=== PATIENT | female | born 1980 | race Caucasian/White ===

== ENCOUNTER 2019-04-21 07:42 | Day surgery (SDC) | payer BC ==
[2019-04-18 15:17] VITALS: BMI 21.9
[2019-04-21 09:44] VITALS: TEMP 98
[2019-04-21 11:01] VITALS: BP 126/80; PULSE 72
--- NOTE | 2019-04-22 16:06 | PATH ---
Surgical Pathology Report Patient Name: ELI العراقي [facility]. Rec. #: [id number] /Age/Gender: 1980 (Age: 39) / F Account: [id number] Location: U-ENDOSCOPY Taken: 04/21/2019 Received: 04/21/2019 Reported: 04/22/2019 Physicians: Alejandro Lanier D.O. Specimen(s) Received 2ND PORTION DUODENUM AND BULB Clinical History History of celiac disease Postoperative diagnosis: Celiac, anemia Final Diagnosis SECOND PORTION OF DUODENUM AND BULB, BIOPSY: DUODENAL MUCOSA WITH UNREMARKABLE CRYPT AND VILLOUS ARCHITECTURE (VILLOUS TO CRYPT RATIO: 3:1), PATCHY MILDLY INCREASED INTRAEPITHELIAL LYMPHOCYTES COUNTS (~30 IEL PER 100 ENTEROCYTES). VILLOUS ATROPHY IS NOT IDENTIFIED IN THIS MATERIAL. NO HISTOLOGIC EVIDENCE OF BASEMENT MEMBRANE THICKENING OR SUBEPITHELIAL COLLAGEN DEPOSITION. Comment: Although findings are non-specific, in view of known clinical history of celiac disease, this may represent Ayon Type 1 (Modified Ayon Classification for Celiac Disease). Duodenal lymphocytosis with normal villous architecture also can be seen in a variety of conditions (infectious etiology, drug related conditions, Inflammatory bowel disease, and other autoimmune conditions). Suggest correlation with clinical information and serology results. Electronically Signed Yina Eckert M.D. Gross Description Received in formalin, labeled "biopsy second portion of duodenum and bulb" are 4 marshall, irregular portions of soft tissue ranging from 0.2-0.5 cm. in greatest dimension. The specimens are submitted in toto in one cassette. 04/21/2019 saudi04/21/2019
== END 2019-04-21 10:37 | disposition home or self-care (01) ==
LOC: JASU-ENDO 07:42
PROVIDERS: ATTEND Internal Medicine Gastroenterology
PROC: 0DB98ZX Excision of Duodenum, Via Natural or Artificial Opening Endoscopic, Diagnostic (ICD-10-PCS; principal; 2019-04-21 09:00)
DX: D50.9 Iron deficiency anemia, unspecified (principal); K31.9 Disease of stomach and duodenum, unspecified; Z87.19 Personal history of other diseases of the digestive system
CPT/HCPCS: 81025; 88305-TC

== ENCOUNTER → 2021-10-15 | Day surgery (SDC) | payer BC ==
[2021-10-14 14:11] VITALS: BMI 22.6
[2021-10-15 13:06] VITALS: TEMP 97.8
[2021-10-15 13:47] VITALS: BP 97/62
[2021-10-15 13:57] VITALS: PULSE 60
== END | disposition home or self-care (01) ==
LOC: JASU-ENDO 04:48
PROVIDERS: ATTEND Internal Medicine Gastroenterology
PROC: 0DB98ZX Excision of Duodenum, Via Natural or Artificial Opening Endoscopic, Diagnostic (ICD-10-PCS; 2021-10-15)
PROC: 0DBL8ZX Excision of Transverse Colon, Via Natural or Artificial Opening Endoscopic, Diagnostic (ICD-10-PCS; principal; 2021-10-15 11:30)
DX: Z12.11 Encounter for screening for malignant neoplasm of colon (principal); D50.9 Iron deficiency anemia, unspecified; Z80.0 Family history of malignant neoplasm of digestive organs; D12.3 Benign neoplasm of transverse colon; K64.8 Other hemorrhoids; Z87.19 Personal history of other diseases of the digestive system
CPT/HCPCS: 88305-TC

== ENCOUNTER 2021-11-23 09:34 | Emergency (ER) | payer BC ==
[2021-11-23 09:38] VITALS: BP 112/70; PULSE 72; RESP 18; TEMP 98.3; BMI 22.8
[2021-11-23 09:58] LABS: HCG,QUALITATIVE URINE Negative
[2021-11-23 10:05] LABS: EPITHELIAL CELLS RARE /hpf
[2021-11-23] MEDS ORDERED: ACETAMINOPHEN 325 MG TABLET (FP) PO ONE (11:03)
[2021-11-23] MEDS ORDERED: ACETAMINOPHEN 325 MG TABLET (FP) ONE (11:05)
== END 2021-11-23 13:11 | disposition home or self-care (01) ==
LOC: FER 09:34
DX: R10.32 Left lower quadrant pain (principal)
CPT/HCPCS: 76775-TC; 76830-TC; 81003; 81015; 84703; 87086; 99285-25; C9803-CS; U0003; U0005

== ENCOUNTER 2023-09-29 03:54 | Day surgery (SDC) | payer BC ==
[2023-09-28 10:35] VITALS: BMI 23.4
[2023-09-29 07:16] VITALS: RESP 18
[2023-09-29 08:16] VITALS: TEMP 97.7
[2023-09-29 08:52] VITALS: BP 94/66; PULSE 60
== END 2023-09-29 08:55 | disposition home or self-care (01) ==
LOC: JASU-ENDO 03:54
PROVIDERS: ATTEND Internal Medicine Gastroenterology
PROC: 0DB98ZX Excision of Duodenum, Via Natural or Artificial Opening Endoscopic, Diagnostic (ICD-10-PCS; principal; 2023-09-29 08:00)
DX: K90.0 Celiac disease (principal); K44.9 Diaphragmatic hernia without obstruction or gangrene
CPT/HCPCS: 81025; 88305-TC

== ENCOUNTER 2024-08-23 06:32 | Day surgery (SDC) | payer BC ==
[2024-08-22 11:50] VITALS: BMI 23.3
[2024-08-23 11:07] VITALS: TEMP 97.3
[2024-08-23 12:01] VITALS: BP 106/58; PULSE 55; RESP 16
[2024-08-23 12:10] LABS: POTASSIUM 3.9 mmol/L (3.5-5.1)
[2024-08-23 12:12] LABS: BLOOD UREA NITROGEN 5.2 mg/dL (7-18); CALCIUM 8.8 mg/dL (8.5-10.1)
[2024-08-23 12:16] LABS: CREATININE 0.6 mg/dL (0.55-1.3)
== END 2024-08-23 11:50 | disposition home or self-care (01) ==
LOC: JASU-ENDO 06:32
PROVIDERS: ATTEND Internal Medicine Gastroenterology
PROC: 0DJD8ZZ Inspection of Lower Intestinal Tract, Via Natural or Artificial Opening Endoscopic (ICD-10-PCS; principal; 2024-08-23 10:15)
DX: Z12.11 Encounter for screening for malignant neoplasm of colon (principal); D50.9 Iron deficiency anemia, unspecified; K64.8 Other hemorrhoids; Z86.0100 Personal history of colon polyps, unspecified; Z80.0 Family history of malignant neoplasm of digestive organs
CPT/HCPCS: 36415; 80048; 81025